=== PATIENT | male | born 1970 | race Two or more races ===

== ENCOUNTER 2020-12-13 13:42 | Emergency (ER) | payer OTHER ==
[~2020-12-13] VITALS: Ht 172.7 cm; Wt 93.0 kg
[2020-12-13 14:51] VITALS: BP 153/104
== END 2020-12-13 16:00 | disposition home or self-care (01) ==
LOC: ER 13:42
DX: S39.012A Strain of muscle, fascia and tendon of lower back, initial encounter (principal); W11.XXXA Fall on and from ladder, initial encounter; Y93.89 Activity, other specified; Y92.89 Other specified places as the place of occurrence of the external cause; Y99.8 Other external cause status
CPT/HCPCS: 72100